=== PATIENT | male | born 1950 | race Caucasian/White ===

== ENCOUNTER 2016-06-07 08:33 | Day surgery (SDC) | payer BC ==
[~2016-06-07] VITALS: Ht 182.9 cm; Wt 107.5 kg
--- NOTE | 2016-06-09 09:22 | OR ---
ADMIT: 06/07/2016 RM/LOC: [facility] MR#: [id number] [id number] [id number] Operative/Delivery Room Report SEX: M AGE: 66 : 1950 SURGERY DATE: 06/07/2016 SURGEON: Kevin Fowler MD PREOPERATIVE DIAGNOSIS: Recurrent umbilical hernia. POSTOPERATIVE DIAGNOSIS: Ventral hernia in the epigastrium. PROCEDURE: Repair of ventral hernia with 4.3 cm Ventralex mesh. ANESTHESIA: General. ESTIMATED BLOOD LOSS: 10 mL. FINDINGS: Intact prior umbilical hernia repair with new ventral hernia defect, 3-4 cm above the margin of the prior repair. DESCRIPTION: The patient was taken to the operating room and placed supine on the operating room table. General anesthesia was established. The abdomen was prepped and draped in the standard surgical fashion. The prior curvilinear infraumbilical scar was incised. Dissection proceeded sharply to the subcutaneous tissue. The skin overlying the prior repair was sharply freed from the underlying scar tissue. The prior repair was carefully inspected and was completely intact with no evidence of recurrence. Dissection proceeded to the hernia sac, which was approximately 4 cm above the prior repair. The sac was carefully dissected and excised. The omentum inside the sac was reduced. The fascial margin measured 1.5 cm. I was able to digitally palpate the anterior abdominal wall through this ventral defect and the prior repair was again inspected and intact. The ventral hernia was then repaired with a 4.3 cm Ventralex mesh placed intra-abdominally. This provided excellent overlap of the defect. This was secured circumferentially with 0 silk suture. No tension was noted upon completion of repair. The deep tissue was closed with 2-0 Vicryl suture. Skin edges were approximated with 4- 0 Monocryl in a subcuticular fashion and Dermabond. Local anesthetic was injected around the operative field and a dressing was applied. Sponge, needle, and instrument counts were correct at the end of the case. The patient tolerated the procedure well and transferred to the recovery area in stable condition. Kevin Fowler MD/ kurt JOB #: [id number] CC: Kevin Fowler, Attending Physician Ching Torre, Family Physician
== END 2016-06-07 13:48 | disposition home or self-care (01) ==
LOC: SSS 08:33
PROC: 0WUF0JZ Supplement Abdominal Wall with Synthetic Substitute, Open Approach (ICD-10-PCS; principal; 2016-06-07)
DX: K43.9 Ventral hernia without obstruction or gangrene (principal); J45.909 Unspecified asthma, uncomplicated; I10 Essential (primary) hypertension; E11.9 Type 2 diabetes mellitus without complications; Z87.891 Personal history of nicotine dependence; Z98.890 Other specified postprocedural states; Z79.899 Other long term (current) drug therapy